=== PATIENT | male | born 1995 | race Caucasian/White ===

== ENCOUNTER 2019-03-04 10:07 | Outpatient (CLI) | payer OTHER ==
--- NOTE | 2019-03-04 10:38 | RAD ---
RIGHT WRIST 3 VIEWS: HISTORY: Right wrist pain FINDINGS: No acute fracture or dislocation is identified. If symptoms do not improve, a follow-up exam should be obtained in 7-10 days.
== END 2019-03-04 10:08 | disposition home or self-care (01) ==
LOC: BICRAD 10:07
PROVIDERS: ATTEND Family Medicine
DX: M25.531 Pain in right wrist (principal)

== ENCOUNTER 2020-04-11 14:32 | Outpatient (CLI) | payer OTHER ==
--- NOTE | 2020-04-11 16:09 | MRI ---
EXAM: MRI right wrist PROVIDED CLINICAL HISTORY: Pain COMPARISON: None FINDINGS: The dorsal extensor and volar flexor tendons demonstrate an intact MR appearance. There is greater th an physiologic fluid about the second dorsal extensor compartment tendons at the level of the radiocarpal joint. There is signal alteration within the radial aspects of the TFC disc that may reflect small central p erforation. The TFC complex, scapholunate ligament and lunotriquetral ligament are suboptimally evaluated in the absence of joint distention but appear otherwise normal. The amounts of fluid within the mid carpal, radiocarpal and distal radioulnar joints appear physiolog ic. Alignment appears anatomic. Joint spaces appear preserved. No focal concerning regional marrow or muscular signal abnormality is evident. The courses of the regional major neurovascular structures appear unremarkable. IMPRESSION: 1. Greater than physiologic fluid about the second dorsal extensor compartment tendons may reflect mi ld tenosynovitis. 2. Signal alteration involving the radial aspects of the TFC disc, suspicious for small central perfo ration.
== END 2020-04-11 14:33 | disposition home or self-care (01) ==
LOC: TBSIIMAG 14:32
PROVIDERS: ATTEND Orthopaedic Surgery
DX: M25.531 Pain in right wrist (principal)

== ENCOUNTER 2020-08-30 14:09 | Outpatient (CLI) | payer OTHER ==
[2020-08-30 15:52] LABS: #Basophils 0.1 10x3/uL (0.0-0.2); #Eosinphils 0.2 10x3/uL (0.0-0.5); #Monocytes 0.7 10x3/uL (0.0-1.1); #Neutrophils 5.1 10x3/uL (1.5-8.4); %Basophils 0.7 % (0.0-2.0); %Eosinophils 2.3 % (0.0-6.0); %Lymphocytes 20.3 % (18.0-47.0); %Monocytes 9.6 % (0.0-10.0); %Neutrophils 66.8 % (40.0-75.0); Hemoglobin 13.7 g/dL (13.5-17.5); Mean Corpuscular HGB CONC 32.6 g/dL (32.0-36.0); Mean Corpuscular Hemoglobin 27.8 pg (27.0-33.0); Mean Corpuscular Volume 85.4 fl (81.2-95.1); Mean Platelet Volume 9.8 fl (7.4-10.4); Platelet Count 247 10x3/uL (150-450); RBC Distribution Width 13.9 % (11.5-14.5); Red Blood Cell (RBC) Count 4.92 10x6/uL (4.32-5.72); White Blood Cell (WBC) Count 7.7 10x3/uL (3.5-10.5)
[2020-08-31 02:35] LABS: SARS-CoV-2 PCR by NAA Not Detected (NotDetected)
== END 2020-08-30 14:10 | disposition home or self-care (01) ==
LOC: LABBT 14:09
PROVIDERS: ATTEND Orthopaedic Surgery Hand Surgery
DX: Z01.812 Encounter for preprocedural laboratory examination (principal); S63.591A Other specified sprain of right wrist, initial encounter; Z20.822 Contact with and (suspected) exposure to COVID-19; M77.8 Other enthesopathies, not elsewhere classified
CPT/HCPCS: 85025; 87635; U0003; U0005

== ENCOUNTER 2020-09-04 05:54 | Day surgery (SDC) | payer OTHER ==
[2020-08-31 14:04] VITALS: BMI 25.1
[2020-09-04] MEDS ORDERED: Bupivacaine PF 0.5% 30 ML VIAL ONE ×2 (06:22→09:41)
[2020-09-04] MEDS ORDERED: Sodium Chloride 0.9% 10 ML ONE (06:22)
[2020-09-04] MEDS ORDERED: EPINEPHrine 1 MG/ML AMP ONE (06:22)
[2020-09-04] MEDS ORDERED: Bacitracin Zinc Ointment 30 gm TUBE ONE (06:22)
[2020-09-04] MEDS ORDERED: HYDROmorphone 0.5 MG/0.5 ML SYRINGE ONE (06:52)
[2020-09-04] MEDS ORDERED: Fentanyl 100 MCG/2 ML VIAL ONE (07:02)
[2020-09-04] MEDS ORDERED: Midazolam HCl 2 mg/2 ml Vial ONE (07:02)
[2020-09-04] MEDS ORDERED: Lidocaine 1% (PF) 30 ML VIAL ONE (07:03)
[2020-09-04] MEDS ORDERED: Ketorolac Tromethamine 30 MG/ML VIAL ONE (09:41)
[2020-09-04] MEDS ORDERED: ePHEDrine 50 MG/ML VIAL ONE (09:41)
[2020-09-04] MEDS ORDERED: Dexamethasone 20 MG/5 ML VIAL ONE (09:41)
[2020-09-04] MEDS ORDERED: PROPOFOL 200 MG/20 ML VIAL ONE (09:41)
[2020-09-04] MEDS ORDERED: Ondansetron PF 4 MG/2 ML Vial ONE (09:41)
[2020-09-04] MEDS ORDERED: Lidocaine 1% PF 5 ML VIAL ONE (09:41)
[2020-09-04] MEDS ORDERED: Betamet Acet/Betamet Na Ph 30 MG/5 ML VIAL ONE (09:46)
[2020-09-04] MEDS ORDERED: HYDROcodone/Acetaminophen 5/325 mg Tablet ONE (11:13)
== END 2020-09-04 13:45 | disposition home or self-care (01) ==
LOC: SDC 05:54
PROVIDERS: ATTEND Orthopaedic Surgery Hand Surgery
PROC: 0PHK04Z Insertion of Internal Fixation Device into Right Ulna, Open Approach (ICD-10-PCS; principal; 2020-09-04)
PROC: 0PBK0ZZ Excision of Right Ulna, Open Approach (ICD-10-PCS; principal; 2020-09-04)
PROC: 3E0T3BZ Introduction of Anesthetic Agent into Peripheral Nerves and Plexi, Percutaneous Approach (ICD-10-PCS; principal; 2020-09-04)
PROC: 0RBN0ZZ Excision of Right Wrist Joint, Open Approach (ICD-10-PCS; principal; 2020-09-04)
PROC: 0MB54ZZ Excision of Right Wrist Bursa and Ligament, Percutaneous Endoscopic Approach (ICD-10-PCS; principal; 2020-09-04)
DX: M65.88 Other synovitis and tenosynovitis, other site (principal); S63.591A Other specified sprain of right wrist, initial encounter; M94.231 Chondromalacia, right wrist; G89.18 Other acute postprocedural pain; M25.331 Other instability, right wrist; M25.831 Other specified joint disorders, right wrist; M77.8 Other enthesopathies, not elsewhere classified; G56.21 Lesion of ulnar nerve, right upper limb; G54.0 Brachial plexus disorders; F17.290 Nicotine dependence, other tobacco product, uncomplicated; W19.XXXA Unspecified fall, initial encounter
CPT/HCPCS: 76000; C1713; J0171; J0690; J0702; J1100; J1170; J1885; J2001; J2250; J2405; J2704; J3010; J3490; S0020